=== PATIENT | female | born 1960 | race Caucasian/White ===

== ENCOUNTER 2018-07-12 12:53 | Emergency (ER) | payer SELFPAY ==
[~2018-07-12] VITALS: Ht 157.5 cm; Wt 55.1 kg
[2018-07-12 12:57] VITALS: Ht 157.5 cm; Wt 55.1 kg
--- NOTE | 2018-07-12 14:42 | ERD ---
ER Documentation Chief Complaint Chief Complaint Complains of back pain x 2 days HPI 58-year-old female, with history of osteoporosis and breast implants, presents to the emergency department, complaining of acute onset of left lower chest wall pain after a forced twisting towards the left side while she was holding her dog. The patient states that she hears a pop followed by intense, sharp pain of the rib cage. ROS All systems reviewed and are negative except as per history of present illness. Medications Home Meds Active Scripts Lorazepam* (Ativan*) 0.5 Mg Tablet, 0.5 MG PO BID, #8 TAB Prov:SHASHANK STORY MD 07/12/18 Baclofen* (Baclofen*) 10 Mg Tablet, 10 MG PO BID for 7 Days, #14 TAB Prov:SHASHANK STORY MD 07/12/18 Ibuprofen* (Motrin*) 400 Mg Tab, 400 MG PO Q8, #12 TAB Prov:SHASHANK STORY MD 07/12/18 Acetaminophen* (Tylenol*) 325 Mg Tablet, 2 TAB PO Q8 PRN for PAIN AND OR ELEVATED TEMP, #20 TAB Prov:SHASHANK STORY MD 07/12/18 Allergies Allergies: Coded Allergies: No Known Allergy (Unverified , 07/12/18) FmHx Family History: No diabetes, No coronary disease Physical Exam Vitals Vital Signs Date Temp Pulse Resp B/P (MAP) Pulse Ox O2 O2 Flow FiO2 Time Delivery Rate 07/12/18 98.7 71 20 150/71 98 Room Air 16:35 (97) 07/12/18 98.2 75 20 173/81 100 12:57 (111) Physical Exam Const: No acute distress Head: Atraumatic Eyes: Normal Conjunctiva ENT: Normal External Ears, Nose and Mouth. Neck: Full range of motion. No meningismus. Resp: Clear to auscultation bilaterally. Tenderness to palpation of the left lower posterior rib cage. Cardio: Regular rate and rhythm, no murmurs Abd: Soft, non tender, non distended. Normal bowel sounds Skin: No petechiae or rashes Back: No midline or flank tenderness Ext: No cyanosis, or edema Neur: Awake and alert Psych: Normal Mood and Affect Results 24 hrs Current Medications Medications Dose Sig/Jem Start Time Status Last (Trade) Ordered Route PRN Stop Time Admin Dose Reason Admin 650 mg ONCE ONCE 07/12/18 DC 07/12/18 Acetaminophen PO 15:00 07/12/18 15:00 (Tylenol 15:01 Tab) Lorazepam 0.5 mg ONCE ONCE 07/12/18 DC 07/12/18 (Ativan) PO 15:00 07/12/18 15:00 15:01 DIAGNOSTIC IMAGING REPORT Patient: JUAREZ LANDRY : 1960 Age: 58 Sex: F MR #: [id number] DOS: 07/12/18 1443 Ordering MD: SHASHANK STORY MD Location: [facility] Room/Bed: PROCEDURE: Xray left ribs. CLINICAL INDICATION: Left rib pain. TECHNIQUE: Three views of the left ribs. COMPARISON: None available FINDINGS: The osseous structures and surrounding soft tissues of the left rib cage are intact. No acute fracture is seen. No radiopaque foreign body is identified. IMPRESSION: 1. Unremarkable left ribs x-ray series. RPTAT: QQ .Wilfrido Arzola MD, MD Date Time Electronically viewed and signed by .Wilfrido Arzola MD, MD on 07/12/2018 15:45 .R/ CC: SHASHANK STORY MD [phone] Procedures/MDM Differential diagnosis include but not limited to: Soft tissue contusion, sprain/strain, muscle spasm, fracture. Neurovascular exam grossly intact. no clinical findings suggestive of fracture, no acute deformity, no edema, no rashes. Physical examination and clinical presentation consistent most likely with chest wall contusion. During the ED course the patient remained stable, without complaints. Results and clinical impression discussed with patient who agrees with management. The patient is stable to be treated outpatient and will be discharged home with recommendations and close monitoring The patient was instructed to follow up with the primary care provider in the next 48h. If symptoms persist, worsen or new symptoms develop, then patient should return to the ED immediately. Instructions explained and given to patient with acknowledgment and demonstrated understanding. Disclaimer: Inadvertent spelling and grammatical errors are likely due to EHR/dictation software use and do not reflect on the overall quality of patient care. Also, please note that the electronic time recorded on this note does not necessarily reflect the actual time of the patient encounter. Departure Diagnosis: Primary Impression: Chest wall muscle strain Condition: Stable Additional Instructions: Thank you very much for allowing us to participate in your care. Your health and safety is our top priority at [facility]. Call your primary care doctor TOMORROW for an appointment during the next 2-4 days and bring all the information and medications prescribed. Have prescriptions filled and follow precisely the directions on the label. If the symptoms get worse and your provider is unavailable, return to the Emergency Department immediately. SHASHANK STORY MD Jul 12, 2018 14:42
[2018-07-12] MEDS ORDERED: LORAZEPAM 0.5 MG TAB PO ONE (15:00)
[2018-07-12] MEDS ORDERED: ACETAMINOPHEN 325 MG TAB PO ONE (15:00)
[2018-07-12] MEDS ORDERED: IBUP-1561 PO (16:06)
[2018-07-12] MEDS ORDERED: ACET325T33 PO (16:06)
[2018-07-12] MEDS ORDERED: BACL10TA PO (16:12)
[2018-07-12] MEDS ORDERED: LORA-441 PO (16:12)
[2018-07-12 16:35] VITALS: BP 150/71; PULSE 71; RESP 20
== END 2018-07-12 16:30 | disposition home or self-care (01) ==
LOC: FTE 12:53
DX: S29.012A Strain of muscle and tendon of back wall of thorax, initial encounter (principal); X58.XXXA Exposure to other specified factors, initial encounter
CPT/HCPCS: 71100